=== PATIENT | female | born 1965 | race African-American/Black ===

== ENCOUNTER 2019-12-09 09:04 | Inpatient (IN) ==
[2019-12-09] MEDS ORDERED: MAALOX PLUS LIQUID PO PRN (12:57)
[2019-12-09] MEDS ORDERED: SEROQUEL PO PRN (12:57)
[2019-12-09] MEDS ORDERED: TUBERSOL ID ONE (12:57)
[2019-12-09] MEDS ORDERED: MOTRIN PO PRN (12:57)
[2019-12-09] MEDS ORDERED: DULCOLAX PR PRN (12:57)
[2019-12-09] MEDS ORDERED: DESYREL PO PRN (12:57)
[2019-12-09] MEDS ORDERED: ZOFRAN ODT PO PRN (12:57)
[2019-12-09] MEDS ORDERED: SENOKOT PO PRN (12:57)
[2019-12-09] MEDS ORDERED: BENTYL PO PRN (12:57)
[2019-12-09] MEDS ORDERED: D5W 1,000 ML IV PRN (12:57)
[2019-12-09] MEDS ORDERED: ATARAX PO PRN (12:57)
[2019-12-09] MEDS ORDERED: ZOFRAN IV PRN (12:57)
[2019-12-09] MEDS ORDERED: IMODIUM PO PRN (12:57)
[2019-12-09] MEDS ORDERED: PHENOBARBITAL IV PRN (12:57)
[2019-12-09] MEDS ORDERED: SINEMET 25/100 PO PRN (12:57)
[2019-12-09] MEDS ORDERED: ROBAXIN PO PRN (12:57)
[2019-12-09] MEDS ORDERED: LIBRIUM PO PRN (12:57)
[2019-12-09 13:47] LABS: URINE SOURCE VOIDED
[2019-12-09] MEDS ORDERED: M.V.I.-12 10 ML, FOLIC ACID 1 MG, MAGNESIUM SULFATE 1 GM, THIAMINE 100 MG in NS 1,000 ML IV ONE (14:00)
[2019-12-09 14:02] LABS: UR AMPHETAMINES QUAL NONE DETECTED (NONE DETECT); UR BARBITUATES QUAL NONE DETECTED (NONE DETECT); UR BENZODIAZEPIN QUAL PRESUMPTIVE POSITIVE (NONE DETECT); UR CANNABINOIDS QUAL NONE DETECTED (NONE DETECT); UR COCAINE QUAL NONE DETECTED (NONE DETECT); UR METHADONE QUAL NONE DETECTED (NONE DETECT); UR METHAMPHETAMINE QUAL NONE DETECTED (NONE DETECT); UR OPIATES QUAL PRESUMPTIVE POSITIVE (NONE DETECT); UR OXYCODONE QUAL NONE DETECTED (NONE DETECT); UR PCP QUAL NONE DETECTED (NONE DETECT); UR PROPOXYPHENE QUAL NONE DETECTED (NONE DETECT); UR TCA QUAL NONE DETECTED (NONE DETECT)
[2019-12-09 14:05] LABS: BILIRUBIN URINE NEGATIVE (NEGATIVE); BLOOD URINE NEGATIVE (NEGATIVE); COLOR YELLOW; GLUCOSE URINE NEGATIVE (NEGATIVE); KETONE URINE NEGATIVE (NEGATIVE); LEUKOCYTES URINE MODERATE (NEGATIVE); NITRITE URINE NEGATIVE (NEGATIVE); PH URINE 6.5; PROTEIN URINE NEGATIVE (NEGATIVE); SP GRAVITY URINE 1.011; TURBIDITY URINE CLEAR (CLEAR); UROBILINOGEN URINE NORMAL (NORMAL)
[2019-12-09 14:07] LABS: UR EPITHELIAL CELLS <10 /HPF (<10); URINE BACTERIA 1+ /HPF; URINE RBC <10 /HPF (<10)
[2019-12-09 14:11] LABS: URINE WBC <10 /HPF (<10)
[2019-12-09 14:51] LABS: HEMATOCRIT 44.1 % (37.0-47.0); HEMOGLOBIN 13.9 g/dL (12.0-16.0); MCH 29.1 PG (27-31); MCHC 31.5 g/dL (33-37); MCV 92.3 FL (81-99); MPV 11.2 FL (7.4-10.4); RBC 4.78 XMIL (4.2-5.4); RDW 15.4 % (11.5-14.5); WBC 7.5 X1000 (4.8-10.8)
[2019-12-09 15:05] LABS: INR 1.08; PROTIME 14.6 Seconds (11.0-16.0)
[2019-12-09] MEDS: SUBOXONE 2 MG/0.5 MG FILM SL SCH (15:38)
[2019-12-09 15:40] LABS: AMYLASE 49 U/L (20-200); LIPASE 13 U/L (13-60)
[2019-12-09 15:42] LABS: AGAP 13; ALBUMIN 3.8 g/dL (3.5-5.0); ALKALINE PHOSPHATASE 100 U/L (32-104); BUN 5 mg/dL (8-22); CALCIUM 9.8 mg/dL (8.8-10.2); CHLORIDE 104 mmol/L (98-107); COSMO 283; CREATININE 0.8 mg/dL (0.5-0.9); ESTIMATED GFR > 60; GLUCOSE 145 mg/dL (70-104); GOT 13 U/L (10-30); GPT 12 U/L (10-36); POTASSIUM 3.2 mmol/L (3.5-5.1); SODIUM 142 mmol/L (136-145); TCO2 26 mmol/L (25-35)
[2019-12-09] MEDS: NICODERM PATCH TD PRN (15:42)
--- NOTE | 2019-12-09 18:29 | HISTORY AND PHYSICAL ---
CHIEF COMPLAINT: Nausea and vomiting. HISTORY OF PRESENT ILLNESS: The patient is a 54-year-old female who presented to [facility] secondary to nausea, vomiting, abdominal pain, and myalgias. She notes that she has been overtaking opiates. She has been trying to stop but withdrawal symptoms become too severe. SOCIAL HISTORY: She is . She is on disability. Lives at home in [place]. 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 Last time was in 1975. History of hypertension and asthma as a child. MEDICATIONS: 1. Clonidine 0.2 b.i.d. 2. Gabapentin 800 t.i.d. 3. Amlodipine 10. 4. Furosemide 20. 5. Pepcid. 6. Potassium. ALLERGIES: Codeine, sulfa, tramadol and Percocet. REVIEW OF SYSTEMS: CINA score is 11 secondary to restless, fidgety, nausea, crampy abdominal pain, occasional diarrhea, watery eyes, runny nose, frequent muscle aches, and pains. Denies any fevers, chills, cough, or congestion. Denies any suicidal or homicidal ideations. Denies headaches, blurred vision, change in vision denies any focalized numbness, tingling, or weakness in her extremities although does have neuropathy, but this is chronic. Nothing has changed. Denies constipation, melena, or hematochezia. SUBSTANCE ABUSE HISTORY: The patient was in treatment in 2014 in [facility], stayed sober for 4 or 5 years. Notes that she started taking pain pills secondary to pain, but has gotten out of control. Started taking opiates in her early 20s. Started smoking at 17, and currently smokes half pack a day. Started Xanax in her early 20s, and took only as prescribed. Started crack at 39, does not currently use. FAMILY HISTORY: Noncontributory. PHYSICAL EXAMINATION: VITAL SIGNS: Reviewed. GENERAL: Patient is awake and alert. Currently, in no respiratory distress. HEENT: Normocephalic. NECK: Supple. CARDIOVASCULAR: Regular rate. CHEST: Clear. ABDOMEN: Soft. EXTREMITIES: Moves all extremities. ASSESSMENT: 1. Nausea and vomiting. 2. Abdominal pain. 3. Myalgias. 4. Paresthesias. 5. Paroxysmal sweating. 6. Opiate abuse withdrawal and stabilization. 7. Chronic pain. 8. Hypertension. PLAN: We are going to admit the patient to the hospital, place her on Suboxone. Hopefully, she will continue to improve. She currently is somewhat highly invested in taking pain medication that she does not want to hurt, and states that she has to have pain medications to live because of how severe her back issues are. Regardless, we did discuss with her that pain medicine does not actually treat pain, fix pain, it does simply cover it up, and the more you take the more it actually creates. Discussed stopping smoking as well. We will follow her blood pressures. Further orders as needed. cc: Miquel Morales MD
[2019-12-09] MEDS: TYLENOL PO PRN (22:00)
[2019-12-10] MEDS: CATAPRES PO SCH ×3 (01:49→21:20)
[2019-12-10] MEDS: SUBOXONE 2 MG/0.5 MG FILM SL SCH (01:49)
[2019-12-10] MEDS: PROTONIX [NONFORMULARY] PO SCH (06:05)
[2019-12-10] MEDS: THERA M PLUS PO SCH (08:06)
[2019-12-10] MEDS: VITAMIN B-1 PO SCH (08:07)
[2019-12-10] MEDS: FOLIC ACID PO SCH (08:07)
[2019-12-10] MEDS: NEURONTIN PO SCH ×3 (08:07→17:11)
[2019-12-10] MEDS: NORVASC PO SCH (08:07)
[2019-12-10] MEDS ORDERED: KLOR-CON PO PRN (09:38)
[2019-12-10] MEDS: TYLENOL PO PRN (14:30)
[2019-12-10] MEDS: NICODERM PATCH TD PRN (14:35)
[2019-12-10] MEDS ORDERED: SUBOXONE 2 MG/0.5 MG FILM SL SCH (21:00)
[2019-12-11] MEDS: SUBOXONE 2 MG/0.5 MG FILM SL SCH ×2 (00:58→08:48)
[2019-12-11] MEDS: PROTONIX [NONFORMULARY] PO SCH (06:06)
[2019-12-11] MEDS: NORVASC PO SCH (08:47)
[2019-12-11] MEDS: VITAMIN B-1 PO SCH (08:47)
[2019-12-11] MEDS: THERA M PLUS PO SCH (08:47)
[2019-12-11] MEDS: CATAPRES PO SCH (08:47)
[2019-12-11] MEDS: FOLIC ACID PO SCH (08:47)
[2019-12-11] MEDS: NEURONTIN PO SCH (08:47)
[2019-12-11] MEDS ORDERED: LASIX PO SCH (09:00)
--- NOTE | 2019-12-11 11:04 | PROGRESS NOTE ---
DATE: 12/10/2019 SUBJECTIVE: Patient notes overall she is feeling better. Denies any fevers, chills. Denies cough. States that she does not think she needs the 4 mg of Suboxone twice daily. Notes that she is doing a lot better. PHYSICAL EXAMINATION: Vital Signs: Reviewed and stable. She is awake, alert. She is in no current respiratory distress. HEENT: Normocephalic. Neck: Supple. Cardiovascular: Regular rate. Chest: Clear. Abdomen: Soft. Extremities: Moves all extremities. ASSESSMENT: 1. Nausea, vomiting. 2. Abdominal pain. 3. Myalgias. 4. Opiate abuse withdrawal and stabilization. PLAN: Overall, the patient has improved. We are going to decrease her Suboxone to 2 mg twice daily, and will continue to follow further orders as needed. Continue discussion regarding medication-assisted therapy, etc. cc: Miquel Morales MD
[2019-12-11 11:35] VITALS: BP 146/70
--- NOTE | 2019-12-11 12:25 | DISCHARGE SUMMARY ---
ADMISSION DATE: 12/09/2019 DISCHARGE DATE: 12/11/2019 DISCHARGE DIAGNOSIS: 1. Nausea and vomiting. 2. Abdominal pain. 3. Myalgias. 4. Paresthesias, resolved. 5. Opiate abuse withdrawal and stabilization. Stable. CONSULTATIONS: None. PROCEDURES: None. BRIEF HOSPITAL COURSE: The patient is a 54-year-old female who presented [facility] secondary to nausea, abdominal pain, myalgias, and paresthesias. She was placed on medication assisted therapy, i.e. Suboxone, continued to improve. On discharge she is awake, alert. She is in no distress. Overall, she notes that she is feeling tremendously better and she has no new complaints. DISPOSITION: Patient will be discharged home. She is tolerating medication assisted therapy, i.e. Suboxone, very well. She is currently on 2 mg daily of Suboxone. We will discharge her home on this. She will continue to follow up as outpatient with treatment facility of choice. Discussed with her the use of medication assisted therapy, avoidance and outpatient counseling. TIME SPENT: Greater than 30 minutes was spent in total care. cc: Miquel Morales MD
== END 2019-12-11 12:10 | disposition home or self-care (01) | DRG 897 ==
LOC: P.DIRADM 11:35 → P.MEDSURG 12:16
PROVIDERS: ADMIT Family Medicine; ATTEND Family Medicine